=== PATIENT | female | born 1970 | race Caucasian/White ===

== ENCOUNTER 2020-02-23 13:46 | Emergency (ER) | payer OTHER ==
[~2020-02-23] VITALS: Ht 177.8 cm; Wt 56.7 kg
[2020-02-23 13:55] VITALS: BP 105/76
[2020-02-23 14:21] LABS: BILIRUBIN 1+ (Negative); BLOOD Negative (Negative); CLARITY Clear (Clear); COLOR Dark Yellow (Yellow); GLUCOSE Negative (Negative); KETONE Negative (Negative); LEUKO ESTERASE 1+ (Negative); NITRITE Positive (Negative); SPECIFIC GRAVITY 1.015 (1.001-1.030)
[2020-02-23 14:33] LABS: BACTERIA 1+
[2020-02-23] MEDS ORDERED: SEPTDS PO (15:08)
[2020-02-23] MEDS ORDERED: PYRIDIUM200 M1 PO (15:08)
== END 2020-02-23 15:47 | disposition home or self-care (01) ==
LOC: ED 13:46
PROVIDERS: Physician Assistant
DX: N39.0 Urinary tract infection, site not specified (principal); Z98.890 Other specified postprocedural states